=== PATIENT | male | born 1955 | race African-American/Black ===

== ENCOUNTER 2018-04-23 16:37 | Inpatient (IN) | payer OTHER ==
[2018-04-23 17:43] VITALS: BMI 26.1
--- NOTE | 2018-04-23 20:25 | HP ---
COWS - Scale Resting Pulse: 1= [place] 81-100 Sweatin= Chills/Flushing Restless Observation: 1= Difficult to Sit Still Pupil Size: 1= Pupils >than Normal Bone or Joint Aches: 2= Severe Diffuse Aches Runny Nose/ Eye Tearin= Runny Nose/Eyes GI Upset > 30mins: 2= Nausea/Diarrhea (diarrhea x 2) Tremor Observation: 2= Slight Tremor Visible Yawning Observation: 0= None Anxiety or Irritability: 2=Irritable/Anxious Goose Flesh Skin: 0=Smooth Skin COWS Score: 14 Admission [facility] [place] [facility] [employer] [facility] Chief Complaint: Heroin withdrawal Allergies/Adverse Reactions: Allergies Allergy/AdvReac Type Severity Reaction Status Date / Time Penicillins Allergy Severe Swelling Verified 04/23/18 19:15 History of Present Illness: 62 years old male with a long history of heroin dependence is seeking admission to detox. Patient has been in previous detox at [facility] 5 years ago and reports 2 years of sobriety. He has medical history of HTN, COPD, depression and Hep C. He denies suicide attempt and suicidal ideation at this time. Patient has right side weakness from his stroke and ambulates with a cane Exam Limitations: No Limitations - Ebola screening Have you traveled outside of the country in the last 21 days: No Have you had contact with anyone from an Ebola affected area: No Have you been sick,other than usual withdrawal symptoms: No Do you have a fever: No - Review of Systems Constitutional: Chills, Loss of Appetite, Malaise EENT: reports: No Symptoms Reported Respiratory: reports: No Symptoms reported Cardiac: reports: No Symptoms Reported GI: reports: Diarrhea, Poor Appetite, Poor Fluid Intake, Abdominal cramping : reports: No Symptoms Reported Musculoskeletal: reports: Back Pain, Muscle Pain Integumentary: reports: Dryness Neuro: reports: Headache, Tremors Endocrine: reports: No Symptoms Reported Hematology: reports: No Symptoms Reported Psychiatric: reports: Orientated x3 Other Systems: Reviewed and Negative Patient History - Patient Medical History Hx Anemia: No Hx Asthma: No Hx Chronic Obstructive Pulmonary Disease (COPD): Yes (Not on medication) Hx Cancer: No Hx Cardiac Disorders: No Hx Congestive Heart Failure: No Hx Hypertension: No Hx Hypercholesterolemia: No Hx Pacemaker: No HX Cerebrovascular Accident: Yes (Not on medication) Hx Seizures: No Hx Dementia: No Hx Diabetes: No Hx Gastrointestinal Disorders: No Hx Liver Disease: Yes (Hep C) Hx Genitourinary Disorders: No Hx Sexually Transmitted Disorders: No Hx Renal Disease (ESRD): No Hx Thyroid Disease: No Hx Human Immunodeficiency Virus (HIV): No Hx Hepatitis C: Yes (Treated with Harvoni) Hx Depression: No Hx Suicide Attempt: No (Denies suicide attempt and suicidal ideation) Hx Bipolar Disorder: No Hx Schizophrenia: No - Patient Surgical History Past Surgical History: No Hx Neurologic Surgery: No Hx Cataract Extraction: No Hx Cardiac Surgery: No Hx Lung Surgery: No Hx Breast Biopsy: No Hx Abdominal Surgery: No Hx Appendectomy: No Hx Cholecystectomy: No Hx Genitourinary Surgery: No Hx Section: No Hx Orthopedic Surgery: No Anesthesia Reaction: No - PPD History Previous Implant?: No Documented Results: Negative w/o proof Implanted On Prior [facility] Admission?: Yes Date: 12/08/13 PPD to be Administered?: Yes - Reproductive History Patient is a Female of Child Bearing Age (11 -55 yrs old): No (Male) - Smoking Cessation Smoking history: Current every day smoker Have you smoked in the past 12 months: Yes Aproximately how many cigarettes per day: 30 Hx Chewing Tobacco Use: No Initiated information on smoking cessation: Yes 'Breaking Loose' booklet given: 04/23/18 - Substance & Tx. History Hx Alcohol Use: No Hx Substance Use: Yes Substance Use Type: Heroin, Opiates Hx Substance Use Treatment: Yes ([facility] ) - Substances Abused Heroin Route: SNIFF Frequency: Daily Amount used: 2 BUNDLES Age of first use: 16 Date of Last Use: 04/23/18 Family Disease History - Family Disease History Family Disease History: Diabetes: Father, Sister, Heart Disease: Mother Admission Physical Exam S - Vital Signs Vital Signs: Vital Signs - 24 hr 04/23/18 17:40 Temperature 97.7 F Pulse Rate 20 L Respiratory 83 H Rate Blood Pressure 161/85 - Physical General Appearance: Yes: Moderate Distress HEENTM: Yes: Hearing grossly Normal, Normal ENT Inspection, Normocephalic, Normal Voice Respiratory: Yes: Lungs Clear, Normal Breath Sounds, No Respiratory Distress Neck: Yes: Supple Breast: Yes: Breast Exam Deferred Cardiology: Yes: Regular Rhythm, Regular Rate Abdominal: Yes: Normal Bowel Sounds, Soft Genitourinary: Yes: Within Normal Limits Back: Yes: Normal Inspection Musculoskeletal: Yes: Back pain, Muscle Pain Extremities: Yes: Tremors Neurological: Yes: reference and instruction librarian II-XII NML intact, Normal Mood/Affect Integumentary: Yes: Normal Color Lymphatic: Yes: Within Normal Limits - Diagnostic (1) Opioid dependence with withdrawal Current Visit: Yes Status: Chronic (2) COPD (chronic obstructive pulmonary disease) Current Visit: Yes Status: Chronic Qualifiers: COPD type: unspecified COPD Qualified Code(s): J44.9 - Chronic obstructive pulmonary disease, unspecified (3) CVA, old, hemiparesis Current Visit: Yes Status: Chronic (4) Essential hypertension Current Visit: Yes Status: Chronic (5) Nicotine dependence Current Visit: Yes Status: Chronic Qualifiers: Nicotine product type: cigarettes Substance use status: uncomplicated Qualified Code(s): F17.210 - Nicotine dependence, cigarettes, uncomplicated Cleared for Admission [facility] - Detox or Rehab [facility] Level of Care: Medically Managed Detox Regimen/Protocol: Methadone [facility] Breath Alcohol Content Breath Alcohol Content: 0 Urine Drug Screen - Results Drug Screen Negative: No Urine Drug Screen Results: OPI-Opiates, OXY-Oxycodone
[2018-04-23] MEDS ORDERED: MAGNESIUM HYDROX 2400MG/30ML ORAL SUSPENSION 30 ML CUP PO PRN (20:37)
[2018-04-23] MEDS ORDERED: NICOTINE POLACRILEX 2 MG GUM BC PRN (20:37)
[2018-04-23] MEDS ORDERED: MAGNESIUM CITRATE 300 ML BOTTLE PO PRN (20:37)
[2018-04-23] MEDS ORDERED: guaiFENesin/D-METHORPHAN HB 10 ML UNIT-DOSE CUPS PO PRN (20:37)
[2018-04-23] MEDS ORDERED: MAG HYDROX/AL HYDROX/SIMETH 30 ML UNIT-DOSE CUP PO PRN (20:37)
[2018-04-23] MEDS ORDERED: LOPERAMIDE HCL 2 MG CAPSULE PO PRN (20:37)
[2018-04-23] MEDS ORDERED: ACETAMINOPHEN 325 MG TABLET (FP) PO PRN (20:37)
[2018-04-23] MEDS ORDERED: P-EPHED 60MG/TRIPROLIDI 2.5MG TABLET PO PRN (20:37)
[2018-04-23] MEDS ORDERED: MENTHOL/PHENOL 1 EACH UD MM PRN (20:37)
[2018-04-23] MEDS ORDERED: METHADONE HCL 10 MG TABLET (FOR DETOX USE ONLY) PO ONE ×2 (21:00→23:00)
[2018-04-23] MEDS: diazePAM 5 MG TABLET PO PRN (21:59)
[2018-04-23] MEDS: THIAMINE HCL 100 MG TABLET (FP) PO SCH (22:05)
--- NOTE | 2018-04-24 08:55 | EKG ---
Test Reason : Blood Pressure : / mmHG Vent. Rate : 074 BPM Atrial Rate : 074 BPM P-R Int : 150 ms QRS Dur : 082 ms QT Int : 380 ms P-R-T Axes : 060 025 066 degrees QTc Int : 421 ms POOR DATA QUALITY, INTERPRETATION MAY BE ADVERSELY AFFECTED NORMAL SINUS RHYTHM WITH SINUS ARRHYTHMIA NONSPECIFIC T WAVE ABNORMALITY ABNORMAL ECG NO PREVIOUS ECGS AVAILABLE Confirmed by MERLENE NAVAS, LILLI ([id number]) on 04/24/2018 8:55:00 AM Referred By: Confirmed By:LILLI BLUNT MD
[2018-04-24] MEDS ORDERED: METHADONE HCL 10 MG TABLET (FOR DETOX USE ONLY) PO ONE (10:00)
[2018-04-24 10:24] LABS: HEMATOCRIT 39.6 % (35.4-49); HEMOGLOBIN 13.2 GM/dL (11.7-16.9); MCH 30.2 pg (25.7-33.7); MCHC 33.4 g/dl (32.0-35.9); MEAN CELL VOLUME 90.3 fl (80-96); MEAN PLT VOLUME 10.5 fl (7.5-11.1); PLATELET COUNT 147 K/MM3 (134-434); RBC 4.39 M/mm3 (4.00-5.60); RDW 14.1 % (11.9-15.9); WHITE BLOOD COUNT 6.8 K/mm3 (4.0-10.0)
[2018-04-24 10:35] LABS: CHLORIDE 105 mmol/L (98-107); SODIUM 141 mmol/L (136-145)
[2018-04-24] MEDS: PRENATAL VITAMINS W/ FOLIC ACID TABLET (FP) PO SCH (10:35)
[2018-04-24] MEDS: amLODIPine BESYLATE 5 MG TABLET (FP) PO SCH (10:35)
[2018-04-24] MEDS: diazePAM 5 MG TABLET PO PRN ×2 (10:35→22:31)
[2018-04-24] MEDS: ALBUTEROL SO4 8 GM HFA INHALER IH PRN (10:36)
[2018-04-24] MEDS: NICOTINE 14 MG/24 HOURS TOPICAL PATCH TD SCH (10:36)
[2018-04-24 10:47] LABS: ALBUMIN 3.2 g/dl (3.4-5.0); ALK PHOS 93 U/L (45-117); ANION GAP 5 (8-16); BILIRUBIN,TOTAL 0.3 mg/dL (0.2-1.0); BLOOD UREA NITROGEN 7 mg/dL (7-18); CALCIUM 8.4 mg/dL (8.5-10.1); CO2 31 mmol/L (21-32); CREATININE 0.6 mg/dL (0.7-1.3); GLUCOSE,RANDOM 90 mg/dL (74-106); SGOT/AST 6 U/L (15-37); SGPT/ALT 10 U/L (12-78); TOT PROT 6.9 g/dl (6.4-8.2)
[2018-04-24 14:55] LABS: RPR REACTIVE 1:1 (NONREACTIVE)
--- NOTE | 2018-04-24 15:59 | PN ---
[facility] COWS - Scale Resting Pulse: 0= [place] 80 or Below Sweatin= Chills/Flushing Restless Observation: 3= Extraneous Movement Pupil Size: 1= Pupils >than Normal Bone or Joint Aches: 2= Severe Diffuse Aches Runny Nose/ Eye Tearin= Runny Nose/Eyes GI Upset > 30mins: 2= Nausea/Diarrhea Tremor Observation of Outstretched Hands: 2= Slight Tremor Visible Yawning Observation: 1= 1-2x During Session Anxiety or Irritability: 2=Irritable/Anxious Goose Flesh Skin: 0=Smooth Skin COWS Score: 16 BHS Progress Note (SOAP) Subjective: Tremor, sweating, chills, diarrhea x 1, interrupted sleep Objective: 04/24/18 15:57 Last Vital Signs Temp Pulse Resp BP Pulse Ox 97.5 F L 73 16 145/81 04/24/18 14:56 04/24/18 14:56 04/24/18 14:56 04/24/18 14:56 Laboratory Tests 04/24/18 04/24/18 04/24/18 07:40 07:40 07:40 WBC 6.8 RBC 4.39 Hgb 13.2 Hct 39.6 D MCV 90.3 MCH 30.2 MCHC 33.4 RDW 14.1 Plt Count 147 MPV 10.5 Sodium 141 Potassium 4.0 Chloride 105 Carbon Dioxide 31 Anion Gap 5 L BUN 7 Creatinine 0.6 L Creat Clearance w eGFR > 60 Random Glucose 90 Calcium 8.4 L Total Bilirubin 0.3 AST 6 L D ALT 10 L D Alkaline Phosphatase 93 Total Protein 6.9 Albumin 3.2 L RPR Titer Reactive 1:1 H Labs reviewed Assessment: 04/24/18 15:58 Withdrawal symptoms Plan: Continue detox Encouraged PO water hydration
[2018-04-24] MEDS: THIAMINE HCL 100 MG TABLET (FP) PO SCH (22:31)
[2018-04-25] MEDS: IBUPROFEN 400 MG TABLET (FP) PO PRN ×2 (03:20→23:42)
[2018-04-25] MEDS ORDERED: METHADONE HCL 5 MG TABLET (FOR DETOX USE ONLY) PO ONE (10:00)
[2018-04-25] MEDS: amLODIPine BESYLATE 5 MG TABLET (FP) PO SCH (10:48)
[2018-04-25] MEDS: PRENATAL VITAMINS W/ FOLIC ACID TABLET (FP) PO SCH (10:48)
[2018-04-25] MEDS: NICOTINE 14 MG/24 HOURS TOPICAL PATCH TD SCH (10:48)
[2018-04-25 12:34] LABS: TREPONEMA ANTIBODY NON REACTIVE (NONREACTIVE)
--- NOTE | 2018-04-25 13:36 | PN ---
[facility] COWS - Scale Resting Pulse: 1= [place] 81-100 Sweatin= Chills/Flushing Restless Observation: 3= Extraneous Movement Pupil Size: 0= Normal to Room Light Bone or Joint Aches: 4=Acute Joint/Muscle Pain Runny Nose/ Eye Tearin= None GI Upset > 30mins: 0= None Tremor Observation of Outstretched Hands: 2= Slight Tremor Visible Yawning Observation: 1= 1-2x During Session Anxiety or Irritability: 2=Irritable/Anxious Goose Flesh Skin: 0=Smooth Skin COWS Score: 14 B[facility] Progress Note (SOAP) Subjective: ANXIETY,IRRITABILITY,SWEATS/CHILLS. Objective: 04/25/18 13:34 Vital Signs 04/25/18 04/25/18 04/25/18 06:41 09:24 13:27 Temperature 97.4 F L 97.5 F L 98.1 F Pulse Rate 70 88 69 Respiratory 18 18 18 Rate Blood Pressure 147/89 157/93 150/79 Laboratory Tests 04/24/18 04/24/18 04/24/18 07:40 07:40 07:40 WBC 6.8 RBC 4.39 Hgb 13.2 Hct 39.6 D MCV 90.3 MCH 30.2 MCHC 33.4 RDW 14.1 Plt Count 147 MPV 10.5 Sodium 141 Potassium 4.0 Chloride 105 Carbon Dioxide 31 Anion Gap 5 L BUN 7 Creatinine 0.6 L Creat Clearance w eGFR > 60 Random Glucose 90 Calcium 8.4 L Total Bilirubin 0.3 AST 6 L D ALT 10 L D Alkaline Phosphatase 93 Total Protein 6.9 Albumin 3.2 L RPR Titer Reactive 1:1 H T.pallidum Ab ([facility]) Non reactive UA PENDING OTHER LABS NOTED Assessment: 04/25/18 13:35 WITHDRAWAL SX Plan: CONTINUE DETOX
[2018-04-25] MEDS: diazePAM 5 MG TABLET PO PRN (22:09)
[2018-04-25] MEDS: THIAMINE HCL 100 MG TABLET (FP) PO SCH (22:09)
[2018-04-25] MEDS: MELATONIN 5 MG TABLETS PO PRN (22:10)
[2018-04-26] MEDS: IBUPROFEN 400 MG TABLET (FP) PO PRN ×2 (05:35→22:11)
[2018-04-26] MEDS: diazePAM 5 MG TABLET PO PRN ×2 (05:37→10:55)
[2018-04-26] MEDS ORDERED: METHADONE HCL 5 MG TABLET (FOR DETOX USE ONLY) PO ONE (10:00)
[2018-04-26] MEDS: ALBUTEROL SO4 8 GM HFA INHALER IH PRN (10:55)
[2018-04-26] MEDS: NICOTINE 14 MG/24 HOURS TOPICAL PATCH TD SCH (10:55)
[2018-04-26] MEDS: amLODIPine BESYLATE 5 MG TABLET (FP) PO SCH (10:55)
[2018-04-26] MEDS: PRENATAL VITAMINS W/ FOLIC ACID TABLET (FP) PO SCH (10:55)
--- NOTE | 2018-04-26 13:05 | PN ---
[facility] Progress Note (SOAP) Subjective: ANXIETY,TIREDNESS,SWEATS, SKIN TINGLING. Objective: 04/26/18 13:04 Vital Signs 04/26/18 04/26/18 06:20 09:32 Temperature 95.8 F L 97 F L Pulse Rate 74 64 Respiratory 18 16 Rate Blood Pressure 152/86 146/72 Laboratory Tests 04/24/18 04/24/18 04/24/18 07:40 07:40 07:40 WBC 6.8 RBC 4.39 Hgb 13.2 Hct 39.6 D MCV 90.3 MCH 30.2 MCHC 33.4 RDW 14.1 Plt Count 147 MPV 10.5 Sodium 141 Potassium 4.0 Chloride 105 Carbon Dioxide 31 Anion Gap 5 L BUN 7 Creatinine 0.6 L Creat Clearance w eGFR > 60 Random Glucose 90 Calcium 8.4 L Total Bilirubin 0.3 AST 6 L D ALT 10 L D Alkaline Phosphatase 93 Total Protein 6.9 Albumin 3.2 L RPR Titer Reactive 1:1 H T.pallidum Ab (A) Non reactive Assessment: 04/26/18 13:05 WITHDRAWAL SX Plan: CONTINUE DETOX
[2018-04-26 17:03] LABS: URINE APPEARANCE CLEAR; URINE BILIRUBIN NEGATIVE (<2.0 mg/dL); URINE COLOR LTYELLOW; URINE GLUCOSE (UA) NEGATIVE (NEGATIVE); URINE KETONE NEGATIVE (NEGATIVE); URINE LEUK ESTERASE NEGATIVE (NEGATIVE); URINE NITRITE NEGATIVE (NEGATIVE); URINE PROTEIN NEGATIVE (NEGATIVE); URINE UROBILINOGEN NEGATIVE mg/dL (0.2-1.0)
[2018-04-26] MEDS: MELATONIN 5 MG TABLETS PO PRN (22:11)
[2018-04-26] MEDS: THIAMINE HCL 100 MG TABLET (FP) PO SCH (22:11)
[2018-04-27] MEDS ORDERED: METHADONE HCL 10 MG TABLET (FOR DETOX USE ONLY) PO ONE (10:00)
[2018-04-27] MEDS: PRENATAL VITAMINS W/ FOLIC ACID TABLET (FP) PO SCH (10:26)
[2018-04-27] MEDS: NICOTINE 14 MG/24 HOURS TOPICAL PATCH TD SCH (10:26)
[2018-04-27] MEDS: amLODIPine BESYLATE 5 MG TABLET (FP) PO SCH (10:26)
[2018-04-27] MEDS: ALBUTEROL SO4 8 GM HFA INHALER IH PRN (10:27)
--- NOTE | 2018-04-27 12:44 | PN ---
[facility] Progress Note (SOAP) Subjective: PT REPORTS DETOX TAPER PROCEEDING WELL. ANTICIPATES TAPER ENDING TOMORROW ANDDISCHARGING. PT ENCOURAGED TO FOLLOW UP WITH HIS COUNSELOR FOR AFTERCARE PLANS. PT REPORTS HE HAS PRIMARY CARE AT [facility] WHERE HE WILL FOLLOW UP FOR MEDICAL MANAGEMENT OF HIS COMORBID CONDITIONS. Objective: 04/27/18 12:44 Vital Signs 04/27/18 04/27/18 06:26 09:48 Temperature 97.4 F L 98.4 F Pulse Rate 74 83 Respiratory 18 20 Rate Blood Pressure 133/74 139/91 Laboratory Tests 04/24/18 04/24/18 04/24/18 07:40 07:40 07:40 WBC 6.8 RBC 4.39 Hgb 13.2 Hct 39.6 D MCV 90.3 MCH 30.2 MCHC 33.4 RDW 14.1 Plt Count 147 MPV 10.5 Sodium 141 Potassium 4.0 Chloride 105 Carbon Dioxide 31 Anion Gap 5 L BUN 7 Creatinine 0.6 L Creat Clearance w eGFR > 60 Random Glucose 90 Calcium 8.4 L Total Bilirubin 0.3 AST 6 L D ALT 10 L D Alkaline Phosphatase 93 Total Protein 6.9 Albumin 3.2 L Urine Color Urine Appearance Urine pH Ur Specific [place] Urine Protein Urine Glucose (UA) Urine Ketones Urine Blood Urine Nitrite Urine Bilirubin Urine Urobilinogen Ur Leukocyte Esterase RPR Titer Reactive 1:1 H T.pallidum Ab ([facility]) Non reactive 04/26/18 10:55 WBC RBC Hgb Hct MCV MCH MCHC RDW Plt Count MPV Sodium Potassium Chloride Carbon Dioxide Anion Gap BUN Creatinine Creat Clearance w eGFR Random Glucose Calcium Total Bilirubin AST ALT Alkaline Phosphatase Total Protein Albumin Urine Color Ltyellow Urine Appearance Clear Urine pH 6.0 D Ur Specific [place] 1.015 Urine Protein Negative Urine Glucose (UA) Negative Urine Ketones Negative Urine Blood Negative Urine Nitrite Negative Urine Bilirubin Negative Urine Urobilinogen Negative Ur Leukocyte Esterase Negative RPR Titer T.pallidum Ab (A) Assessment: 04/27/18 12:44 DECREASED WITHDRAWAL SX Plan: CONTINUE DETOX
[2018-04-27] MEDS: THIAMINE HCL 100 MG TABLET (FP) PO SCH (22:08)
[2018-04-27] MEDS: MELATONIN 5 MG TABLETS PO PRN (22:08)
[2018-04-28] MEDS: IBUPROFEN 400 MG TABLET (FP) PO PRN (05:22)
[2018-04-28] MEDS ORDERED: METHADONE HCL 5 MG TABLET (FOR DETOX USE ONLY) PO ONE (06:00)
[2018-04-28 06:10] VITALS: BP 126/79; PULSE 71; TEMP 97.4
--- NOTE | 2018-04-28 08:42 | PN ---
[facility] Progress Note (SOAP) Subjective: DETOX COMPLETED. ALERT O X 3. NAD. PT STATES HE HAS PRIMARY CARE WITH [facility] AND WILL FOLLOW UP WITH MEDICAL MANAGEMENT NEEDED. REPORTS HAS OWN HTN MED AT HOME. Objective: 04/28/18 08:41 Vital Signs 04/28/18 04/28/18 03:30 06:09 Temperature 97.4 F L Pulse Rate 71 Respiratory 18 18 Rate Blood Pressure 126/79 Laboratory Tests 04/24/18 04/24/18 04/24/18 07:40 07:40 07:40 WBC 6.8 RBC 4.39 Hgb 13.2 Hct 39.6 D MCV 90.3 MCH 30.2 MCHC 33.4 RDW 14.1 Plt Count 147 MPV 10.5 Sodium 141 Potassium 4.0 Chloride 105 Carbon Dioxide 31 Anion Gap 5 L BUN 7 Creatinine 0.6 L Creat Clearance w eGFR > 60 Random Glucose 90 Calcium 8.4 L Total Bilirubin 0.3 AST 6 L D ALT 10 L D Alkaline Phosphatase 93 Total Protein 6.9 Albumin 3.2 L Urine Color Urine Appearance Urine pH Ur Specific [place] Urine Protein Urine Glucose (UA) Urine Ketones Urine Blood Urine Nitrite Urine Bilirubin Urine Urobilinogen Ur Leukocyte Esterase RPR Titer Reactive 1:1 H T.pallidum Ab (A) Non reactive 04/26/18 10:55 WBC RBC Hgb Hct MCV MCH MCHC RDW Plt Count MPV Sodium Potassium Chloride Carbon Dioxide Anion Gap BUN Creatinine Creat Clearance w eGFR Random Glucose Calcium Total Bilirubin AST ALT Alkaline Phosphatase Total Protein Albumin Urine Color Ltyellow Urine Appearance Clear Urine pH 6.0 D Ur Specific [place] 1.015 Urine Protein Negative Urine Glucose (UA) Negative Urine Ketones Negative Urine Blood Negative Urine Nitrite Negative Urine Bilirubin Negative Urine Urobilinogen Negative Ur Leukocyte Esterase Negative RPR Titer T.pallidum Ab ([facility]) Assessment: 04/28/18 08:42 MEDICALLY STABLE Plan: D/C PT TODAY
--- NOTE | 2018-04-28 08:46 | DS ---
[facility] Detox Discharge Summary Admission Date: 04/23/18 Discharge Date: 04/28/18 - History Present History: Opioid Dependence Additional Comments: DETOX COMPLETED. ALERT O X 3. NAD. FOLLOW UP WITH MEDICAL MANAGEMENT AT [facility] NEEDED. Pertinent Past History: PLEASE SEE DX BELOW - Physical Exam Results Vital Signs: Vital Signs Temperature 97.4 F L 04/28/18 06:09 Pulse Rate 71 04/28/18 06:09 Respiratory Rate 18 04/28/18 06:09 Blood Pressure 126/79 04/28/18 06:09 O2 Sat by Pulse Oximetry (%) Pertinent Admission Physical Exam Findings: WITHDRAWAL SX Laboratory Tests 04/24/18 04/24/18 04/24/18 07:40 07:40 07:40 WBC 6.8 RBC 4.39 Hgb 13.2 Hct 39.6 D MCV 90.3 MCH 30.2 MCHC 33.4 RDW 14.1 Plt Count 147 MPV 10.5 Sodium 141 Potassium 4.0 Chloride 105 Carbon Dioxide 31 Anion Gap 5 L BUN 7 Creatinine 0.6 L Creat Clearance w eGFR > 60 Random Glucose 90 Calcium 8.4 L Total Bilirubin 0.3 AST 6 L D ALT 10 L D Alkaline Phosphatase 93 Total Protein 6.9 Albumin 3.2 L Urine Color Urine Appearance Urine pH Ur Specific [place] Urine Protein Urine Glucose (UA) Urine Ketones Urine Blood Urine Nitrite Urine Bilirubin Urine Urobilinogen Ur Leukocyte Esterase RPR Titer Reactive 1:1 H T.pallidum Ab ([facility]) Non reactive 04/26/18 10:55 WBC RBC Hgb Hct MCV MCH MCHC RDW Plt Count MPV Sodium Potassium Chloride Carbon Dioxide Anion Gap BUN Creatinine Creat Clearance w eGFR Random Glucose Calcium Total Bilirubin AST ALT Alkaline Phosphatase Total Protein Albumin Urine Color Ltyellow Urine Appearance Clear Urine pH 6.0 D Ur Specific [place] 1.015 Urine Protein Negative Urine Glucose (UA) Negative Urine Ketones Negative Urine Blood Negative Urine Nitrite Negative Urine Bilirubin Negative Urine Urobilinogen Negative Ur Leukocyte Esterase Negative RPR Titer T.pallidum Ab ([facility]) - Treatment Hospital Course: Detox Protocol Followed, Detoxed Safely, Responded well, Discharged Condition Good Patient has Accepted a Rehab Referral to: REFUSED AFTERCARE - Medication Discharge Medications: Ambulatory Orders Albuterol Sulfate Inhaler - [Ventolin HFA Inhaler -] 1 - 2 inh PO PRN 12/06/13 Amlodipine Besylate 5 mg PO DAILY 04/23/18 - Diagnosis (1) Opioid dependence with withdrawal Current Visit: Yes Status: Acute (2) COPD (chronic obstructive pulmonary disease) Current Visit: Yes Status: Chronic Qualifiers: COPD type: unspecified COPD Qualified Code(s): J44.9 - Chronic obstructive pulmonary disease, unspecified (3) CVA, old, hemiparesis Current Visit: Yes Status: Chronic (4) Essential hypertension Current Visit: Yes Status: Chronic (5) Hepatitis C carrier Current Visit: Yes Status: Chronic (6) Nicotine dependence Current Visit: Yes Status: Acute Qualifiers: Nicotine product type: cigarettes Substance use status: in withdrawal Qualified Code(s): F17.213 - Nicotine dependence, cigarettes, with withdrawal - AMA Did Patient Leave Against Medical Advice: No
== END 2018-04-28 08:56 | disposition home or self-care (01) | DRG 897 ==
LOC: YASAS 16:37 → Y3N 19:29
PROVIDERS: ADMIT Surgery; ATTEND Surgery
PROC: HZ2ZZZZ Detoxification Services for Substance Abuse Treatment (ICD-10-PCS; principal; 2018-04-23)
DX: F11.23 Opioid dependence with withdrawal (principal); I69.359 Hemiplegia and hemiparesis following cerebral infarction affecting unspecified side; F17.213 Nicotine dependence, cigarettes, with withdrawal; F32.9 Major depressive disorder, single episode, unspecified; J44.9 Chronic obstructive pulmonary disease, unspecified; I10 Essential (primary) hypertension; B18.2 Chronic viral hepatitis C; Z88.0 Allergy status to penicillin
CPT/HCPCS: 36415; 80053; 81003; 85027; 86593; 86780; 93005; 93010